=== PATIENT | male | born 1935 | race Caucasian/White ===

== ENCOUNTER 2018-05-08 05:50 | Day surgery (SDC) | payer MEDICARE ==
[2018-05-07 15:04] VITALS: BMI 26.1
[2018-05-08 07:26] LABS: INR-International Normal Ratio 1.2; PTT 29.1 SEC (22.9-36.1)
[2018-05-08] MEDS ORDERED: PROPOFOL 20 ML ONE (07:49)
--- NOTE | 2018-05-08 13:05 | EKG ---
Test Reason : PREOP Blood Pressure : / mmHG Vent. Rate : 043 BPM Atrial Rate : 033 BPM P-R Int : 000 ms QRS Dur : 108 ms QT Int : 482 ms P-R-T Axes : 000 -24 193 degrees QTc Int : 407 ms Atrial fibrillation with slow ventricular response Minimal voltage criteria for LVH, may be normal variant Inferior-posterior infarct , age undetermined Abnormal ECG No previous ECGs available Confirmed by SKIP HERRERA, DR. Savage ([id number]) on 05/08/2018 1:05:09 PM Referred By: CHRISTINA Confirmed By:DR. Janette VALDIVIA MD
--- NOTE | 2018-05-08 16:05 | ECHO ---
TRANSESOPHAGEAL ECHOCARDIOGRAM: DATE OF PROCEDURE: 05/08/18 INDICATION: 83-year-old gentleman with paroxysmal atrial fibrillation. DESCRIPTION OF PROCEDURE: The patient was taken to the PACU. The patient was sedated by anesthesiology. A transesophageal probe was placed in the distal esophagus and stomach. Echocardiographic images were obtained. The transesophageal probe was removed. FINDINGS: 1. Mild decrease in left ventricular systolic function. 2. Biatrial enlargement. 3. Mild mitral regurgitation. 4. Mild tricuspid regurgitation. 5. Watchman device was well positioned with the miniscule leak noted. 6. Small PFO. 7. Atherosclerotic debris in the descending aorta. IMPRESSION: Watchman device well positioned with a miniscule leak that is noted.
== END 2018-05-08 09:13 | disposition home or self-care (01) ==
LOC: CCL 05:50
PROVIDERS: ATTEND Internal Medicine Cardiovascular Disease
PROC: B24BZZ4 Ultrasonography of Heart with Aorta, Transesophageal (ICD-10-PCS; principal; 2018-05-08)
DX: I48.0 Paroxysmal atrial fibrillation (principal); I34.0 Nonrheumatic mitral (valve) insufficiency; I07.1 Rheumatic tricuspid insufficiency; Q21.1 Atrial septal defect; T82.538A Leakage of other cardiac and vascular devices and implants, initial encounter; Z79.01 Long term (current) use of anticoagulants; Z79.82 Long term (current) use of aspirin; Z79.899 Other long term (current) drug therapy
CPT/HCPCS: 85610; 85730; 93005; 93010; 93312; J2704

== ENCOUNTER 2018-08-29 00:04 | Inpatient (IN) | payer MEDICARE ==
[2018-08-29 01:16] LABS: #Eosinphils 0.2 thou/uL (0.0-0.7); #Lymphocytes 1.2 thou/uL (1.20-3.40); #Monocytes 0.4 thou/uL (0.11-0.59); #Neutrophils 2.7 thou/uL (1.40-6.50); %Basophils 0.5 % (0.0-1.0); %Eosinophils 4.4 % (0.0-10.0); %Lymphocytes 26.3 % (21.0-51.0); %Neutrophils 59.8 % (42.0-75.0); Mean Corpuscular HGB CONC 30.9 g/dL (32.0-36.0); Mean Corpuscular Hemoglobin 28.1 pg (27.0-31.0); Mean Platelet Volume 7.7 fL (7.4-10.4); Platelet Count 164 thou/uL (130-400); RBC Distribution Width 15.5 % (11.5-14.5); White Blood Cell (WBC) Count 4.5 thou/uL (4.8-10.8)
[2018-08-29 01:34] LABS: ALT (SGPT) 20 U/L (8-55); AST (SGOT) 30 U/L (5-34); Albumin 3.8 g/dL (3.4-4.8); Alkaline Phosphatase 69 U/L (40-150); Anion Gap 12 mmol/L (10-20); BUN (Urea Nitrogen) 26 mg/dL (8.4-25.7); Bilirubin, Total 0.6 mg/dL (0.2-1.2); Calc. Creatinine Clearance 0 mL/min (70-130); Calcium 9.6 mg/dL (7.8-10.44); Carbon Dioxide 26 mmol/L (23-31); Chloride 108 mmol/L (98-107); Estimated GFR-MDRD 61; Globulin 2.7 g/dL (2.4-3.5); Glucose 101 mg/dL (83-110); Lipase 29 U/L (8-78); Potassium 4.1 mmol/L (3.5-5.1); Protein, Total 6.5 g/dL (5.8-8.1); Sodium 142 mmol/L (136-145)
[2018-08-29] MEDS ORDERED: Acetaminophen 325 MG TAB PO PRN (02:34)
[2018-08-29 03:34] VITALS: BMI 26.0
[2018-08-29] MEDS ORDERED: Acetaminophen 325 MG TAB ONE (05:50)
[2018-08-29 06:18] LABS: Troponin I Less than 0.010 ng/mL (< 0.028)
[2018-08-29 07:07] LABS: Troponin I Less than 0.010 ng/mL (< 0.028)
[2018-08-29] MEDS ORDERED: HumaLOG 300 UNITS/3 ML VIAL SC PRN ×2 (08:23)
[2018-08-29] MEDS ORDERED: Dextrose 5% in Water 1,000 ML IV PRN (08:23)
[2018-08-29] MEDS ORDERED: Dextrose 50% Abboject 50 ML SYRINGE SLOW IVP PRN (08:23)
--- NOTE | 2018-08-29 08:35 | RAD ---
RADIOGRAPH CHEST 1 VIEW: HISTORY: 83-year-old male with atrial fibrillation and bradycardia. FINDINGS: There is cardiomegaly. There is no evidence of air space density, pulmonary edema, or pneumothorax. T he lateral costophrenic angles are sharp. IMPRESSION: 1. No acute pulmonary findings. 2. Cardiomegaly without congestive heart failure. harleen [] POS: KOFFI
[2018-08-29 09:00] LABS: Cardiac Risk 3.2 (Less than 4.5)
[2018-08-29] MEDS ORDERED: Non-Formulary Item 1 EACH (Omeprazole [Omeprazole] 1 CAP) PO SCH (09:00)
[2018-08-29] MEDS ORDERED: Atorvastatin Calcium 40 MG TAB PO SCH ×2 (09:00→14:45)
[2018-08-29] MEDS ORDERED: Donepezil HCl 10 MG TAB PO SCH ×2 (09:00→14:45)
[2018-08-29] MEDS ORDERED: FLUoxetine HCl 10 MG CAP PO SCH ×2 (09:00→14:45)
[2018-08-29] MEDS ORDERED: Famotidine 20 MG TAB PO SCH ×2 (09:00→14:45)
[2018-08-29] MEDS ORDERED: Aspirin 81 mg Enteric Coated Tablet PO SCH ×2 (09:00→14:45)
[2018-08-29] MEDS ORDERED: clonazePAM 0.5 MG TAB PO SCH ×2 (09:00→14:45)
[2018-08-29] MEDS ORDERED: Regadenoson 0.4 MG/5 ML SYRINGE ONE (11:00)
--- NOTE | 2018-08-29 13:14 | HP ---
DATE OF ADMISSION: 08/29/2018 PRIMARY CARE PHYSICIAN: Dr. Macedo. CHIEF COMPLAINT: "I had a pain in my chest and did not know what it was." HISTORY OF PRESENT ILLNESS: Mr. Pardo is a pleasant 83-year-old gentleman that has a history of diabet es mellitus as well as hypertension and coronary artery disease. He also has a history of chronic at rial fibrillation and has a Watchman device placed. He was in his usual state of health until about 6:30 in the evening. He says that he was watching TV when he began noticing a pain in the left side of his chest. He says he cannot really describe it other than it was just a pain. He felt like his heart was hurting. He says it was nonradiating. There were no associated symptoms such as shortness of breath or nausea or vomiting. He said it would come and go. He says he has had pain in his ches t due to scar tissue and had a workup, which was negative, but says that this pain seemed different t o him and for this reason, he came to the emergency room for evaluation. He was seen in an outside E R and then transferred to our facility for further evaluation. Currently, the pain is gone, but he s ays the medicines in the ER did not really help. He says it just came and went and is just less prom inent now. He denies any PND, no orthopnea. He has noted some increase in lower extremity edema rec ently. Otherwise, no other complaints. REVIEW OF SYSTEMS: All systems were reviewed and are negative except for that mentioned in the histo ry of present illness. PAST MEDICAL HISTORY: Significant for diabetes mellitus, hyperlipidemia, hypertension, coronary terrence ry disease, insomnia and atrial fibrillation. PAST SURGICAL HISTORY: He has had a hip replacement, a right total knee replacement, appendectomy, c holecystectomy and a left nephrectomy. ALLERGIES: No known drug allergies. SOCIAL HISTORY: He is and he has been for about 48 years. He is a former smoker. H e quit when he was 29 years old. He rarely drinks alcohol. His , Reena Zabala is his surrogate dec ision maker. The patient would like to have CPR, but does not want to be intubated. FAMILY HISTORY: Significant for heart disease in his mother. Father young and he does not know his father's history. HOME MEDICATIONS: Include aspirin 81 mg daily, Lipitor 80 mg daily, baclofen 10 mg t.i.d., carvedilo l 3.125 mg twice daily, clonazepam 0.5 mg daily, donepezil 10 mg daily, fluoxetine 10 mg daily, Myrbe triq 50 mg at bedtime, omeprazole 20 mg daily and ramipril 5 mg at bedtime. PHYSICAL EXAMINATION: GENERAL: He is alert and oriented. He appears to be in no acute distress. He is well developed and well nourished. VITAL SIGNS: Blood pressure was 120/68, heart rate 51, respiratory rate of 16, temperature is 97.9. HEENT: His pupils are equal, round and reactive. Extraocular muscles are intact. His sclerae are a nicteric. Throat, there was no erythema, no exudates. NECK: No adenopathy. No bruits. LUNGS: Clear to auscultation. There is no wheezing, no rales, no rhonchi. CARDIOVASCULAR: He has a normal S1 and S2. I did not appreciate an S3 or an S4. No murmurs, no cli cks, no rubs. ABDOMEN: Soft, nontender, nondistended. Positive for bowel sounds. There is no rebound, no guardin g. MUSCULOSKELETAL: There is no muscle tenderness. No crepitus in the joints. No effusions. NEUROLOGIC: Cranial nerves II-XII are intact. Muscle strength is 5/5 in both his upper and lower ex tremities. SKIN AND INTEGUMENT: There are no skin changes. No rash. LABORATORY AND X-RAY FINDINGS: On his EKG, it is atrial fibrillation, the rates ranging from 50 to t he 60s, nonspecific ST wave changes. This is by my reading. CBC, the white blood cell count is 4.5, hemoglobin 11, hematocrit is 35.5 and platelet count is 164,000. Sodium is 142, potassium 4.1, chlo ride is 108, CO2 is 26, BUN of 26, creatinine 1.14, glucose is 101. Troponin is less than 0.010. He had a chest x-ray, he has cardiomegaly. Sternal wires are in place. There is some mild airspace di sease, but the costophrenic angles are sharp. There is no evidence of effusion. ASSESSMENT AND PLAN: 1. This is a pleasant 83-year-old gentleman who presents to the emergency room with complaints of ch est pain in the setting of slow atrial fibrillation. He will be placed in observation. He has alrea dy had a full set of cardiac enzymes. We will get a nuclear stress test to help assess his risk for acute coronary syndrome. Check a lipid panel, consider echocardiogram and consult Dr. Muller for [facility] recommendations. 2. For diabetes mellitus, we will continue his usual home medications as well as the sliding scale i nsulin. 3. Hypertension. Continue his home medications as well as p.r.n. medications for blood pressure. F mayrather recommendations are to follow.
--- NOTE | 2018-08-29 14:20 | NM ---
CARDIAC SPECT: CLINICAL HISTORY: 83-year-old male with chest pain, bradycardia, coronary artery disease, CABG, atrial fibrillation, hy pertension, diabetes, and dyslipidemia. TECHNIQUE: A myocardial perfusion scan was performed using the single isotope one day protocol with technetium-9 9m sestamibi. 9 mCi were injected intravenously for the rest exam followed by 30 mCi for the stress e xam. Pharmacologic stress with Lexiscan was monitored and interpreted by Dr. Muller. FINDINGS: A fixed defect is seen in the inferior wall. No reversible defects are identified. GATED SPECT LVEF: 49%. WALL MOTION EXAM: Mild inferior wall hypokinesis. IMPRESSION: No evidence of reversible ischemia. POS: KOFFI
[2018-08-29] MEDS: Baclofen 10 MG TAB PO SCH ×4 (15:15→20:38)
[2018-08-29] MEDS: Enoxaparin Sodium 40 MG/0.4 ML SYRINGE SC SCH (15:19)
--- NOTE | 2018-08-29 18:29 | CON ---
DATE OF CONSULTATION: 08/29/2018 INDICATION FOR CONSULTATION: An 83-year-old gentleman with history of paroxysmal atrial fibrillation , history of coronary artery disease, bypass surgery who complains of chest discomfort. He has been seen in the past apparently for chest discomfort which was thought to be due to scar tissue. He desc ribes this as being a dull left upper chest discomfort. He presented to the emergency room yesterday and was then transferred here. His EKG does not show any significant changes to indicate ischemia. He does have chronic atrial fibrillation, but no ST segment changes were noted. Also, the laborator y data did not show any indication that the patient had suffered a myocardial infarction. Cardiac en zymes are all negative. His last stress test was approximately 2 years ago. He last saw Dr. Claribel kinsey in the office about 6 months ago. He has had an echocardiogram which showed a mild decrease in lef t ventricular systolic function with dilated left atrium and right atrium. He has had a Watchman imp lant in the past. He has a small patent foramen ovale. He did have a transesophageal echocardiogram by Dr. Ybarra also within the last year which showed a Watchman to be in place without any leakage . He has mild mitral and tricuspid valve regurgitation. PAST MEDICAL HISTORY: Significant for bypass surgery, history of myocardial infarction, bilateral ca taract surgery. He has had restless leg syndrome. He has history of atrial fibrillation. He has land d left nephrectomy due to renal cell carcinoma. He has had left hip replacement. He has had total k nee replacement, carpal tunnel syndrome repair, cholecystectomy, appendectomy. SOCIAL HISTORY: He has no alcohol or tobacco abuse at this time. FAMILY HISTORY: Noncontributory. ALLERGIES: None. MEDICATIONS: Include aspirin, Coreg, Lipitor and ramipril. REVIEW OF SYSTEMS: Twelve point review of systems unremarkable except noted in the history of presen t illness, however, the patient does have memory loss. PHYSICAL EXAMINATION: GENERAL: Reveals an elderly gentleman in no acute distress. VITAL SIGNS: Blood pressure 104/68, heart rate 78 and irregular, respiratory rate is 16. Heart rate earlier was about 50 beats per minute. HEENT: Shows the head to be normocephalic and atraumatic. Carotid pulses are present. There were n o bruits. CHEST: Clear to auscultation. No rales, rhonchi, or wheezing. CARDIOVASCULAR: Exam reveals an irregularly regular rhythm. Denies any significant murmurs, heaves, thrills, bruits, or rubs. ABDOMEN: Soft and nontender with positive bowel sounds. No organomegaly or masses noted. Femoral p ulses are present. EXTREMITIES: Showed no clubbing, cyanosis, or edema. Pedal pulses are present. NEUROLOGIC: The patient other than having some memory loss appears to be relatively intact. DIAGNOSTIC DATA: EKG shows atrial fibrillation with no acute changes. The heart rate fluctuates in between 50s to 70s beats per minute. IMPRESSION: 1. Elderly gentleman with chest pain which he has had in the past which may just be due to scar tiss ue or anxiety. He has had no EKG changes and cardiac enzymes are negative and we will await the resu lts of stress testing to rule out any evidence for underlying ischemia if any is found, he may need t o undergo a cardiac catheterization. Otherwise, we may need to seek for other sources of his discomf ort and may need to start some type of pain medication or pain control. 2. History of bypass surgery. This does appear to be stable. We will await the results of the stre ss test. 3. History of hypercholesterolemia. We will continue his Lipitor. 4. History of hypertension. We will continue his Coreg and ramipril. If there are any other change , we will be more than happy to address these at that time. We will await the results of the studies . His echocardiogram shows ejection fraction to be only mildly decreased and we will need to compare with his previous echos in the past. 5. Chronic atrial fibrillation. He has undergone a Watchman device and will have a decreased risk o f having an embolic phenomenon.
[2018-08-29] MEDS: Famotidine 20 MG TAB PO SCH (20:40)
[2018-08-29] MEDS ORDERED: Melatonin 3 MG TAB PO PRN (21:27)
[2018-08-29] MEDS: Ramipril 5 MG CAP PO SCH (21:51)
[2018-08-30 05:09] LABS: #Eosinphils 0.1 thou/uL (0.0-0.7); #Monocytes 0.5 thou/uL (0.11-0.59); #Neutrophils 2.5 thou/uL (1.40-6.50); %Basophils 0.4 % (0.0-1.0); %Eosinophils 3.1 % (0.0-10.0); %Lymphocytes 23.6 % (21.0-51.0); %Monocytes 11.5 % (0.0-10.0); %Neutrophils 61.4 % (42.0-75.0); Hemoglobin 10.4 g/dL (14.0-18.0); Mean Corpuscular HGB CONC 32.1 g/dL (32.0-36.0); Mean Corpuscular Hemoglobin 28.7 pg (27.0-31.0); Mean Corpuscular Volume 89.3 fL (78.0-98.0); Mean Platelet Volume 8.1 fL (7.4-10.4); Platelet Count 144 thou/uL (130-400); RBC Distribution Width 15.3 % (11.5-14.5); Red Blood Cell (RBC) Count 3.64 mill/uL (4.70-6.10); White Blood Cell (WBC) Count 4.1 thou/uL (4.8-10.8)
[2018-08-30 05:20] LABS: Anion Gap 12 mmol/L (10-20); BUN (Urea Nitrogen) 23 mg/dL (8.4-25.7); Calc. Creatinine Clearance 57 mL/min (70-130); Calcium 8.9 mg/dL (7.8-10.44); Carbon Dioxide 24 mmol/L (23-31); Chloride 109 mmol/L (98-107); Estimated GFR-MDRD 68; Glucose 115 mg/dL (83-110); Potassium 4.1 mmol/L (3.5-5.1); Sodium 141 mmol/L (136-145)
[2018-08-30] MEDS: Enoxaparin Sodium 40 MG/0.4 ML SYRINGE SC SCH (08:09)
[2018-08-30] MEDS: Baclofen 10 MG TAB PO SCH ×3 (08:09→22:14)
[2018-08-30] MEDS: clonazePAM 0.5 MG TAB PO SCH (08:10)
[2018-08-30] MEDS: Atorvastatin Calcium 40 MG TAB PO SCH (08:10)
[2018-08-30] MEDS: Aspirin 81 mg Enteric Coated Tablet PO SCH (08:10)
[2018-08-30] MEDS: FLUoxetine HCl 10 MG CAP PO SCH (08:11)
[2018-08-30] MEDS: Donepezil HCl 10 MG TAB PO SCH (08:11)
[2018-08-30] MEDS: Famotidine 20 MG TAB PO SCH ×2 (08:12→22:15)
--- NOTE | 2018-08-30 15:08 | PDOC.PN ---
- Subjective Encounter Start Date: 08/30/18 Encounter Start Time: 13:00 Mr. Pardo was seen today in follow-up of chest pain and bradycardia. He does not have any complaints this afternoon - Objective Resuscitation Status: Resuscitation Status DNI:No Intubation MAR Reviewed: Yes Vital Signs & Weight: Vital Signs (12 hours) Temp Pulse Resp BP BP Pulse Ox 08/30/18 11:50 97.5 F L 48 L 16 124/64 97 08/30/18 07:58 98.5 F 56 L 18 101/56 L 94 L 08/30/18 05:00 97.0 F L 50 L 18 134/59 L 96 Weight Weight 163 lb 14.4 oz I&O: 08/29/18 08/30/18 08/31/18 06:59 06:59 06:59 Intake Total 50 1200 Output Total 500 Balance 50 1200 -500 Result Diagrams: 08/30/18 04:44 08/30/18 04:44 Additional Labs: Accuchecks 08/30/18 08/29/18 08/29/18 10:44 20:08 16:35 POC Glucose 90 121 H 93 Phys Exam - Physical Examination HEENT: PERRLA Respiratory: no wheezing, no rales, no rhonchi, clear to auscultation bilateral Cardiovascular: no significant murmur, no rub, irregular Heart rate is slow Gastrointestinal: soft, non-tender, no distention, positive bowel sounds Musculoskeletal: no edema, pulses present Dx/Plan (1) Chest pain Code(s): R07.9 - CHEST PAIN, UNSPECIFIED Status: Acute (2) Bradycardia Code(s): R00.1 - BRADYCARDIA, UNSPECIFIED Status: Acute (3) Atrial fibrillation Code(s): I48.91 - UNSPECIFIED ATRIAL FIBRILLATION Status: Chronic (4) Coronary artery disease Code(s): I25.10 - ATHSCL HEART DISEASE OF [place] CORONARY ARTERY W/O ANG PCTRS Status: Chronic (5) Hypertension Code(s): I10 - ESSENTIAL (PRIMARY) HYPERTENSION Status: Chronic - Plan * Chest pain- ? etiology- his stress test was negative- this may be related to bradycardia, vs. other non-cardiac cause * Bradycardia- ( slow AFIB) his heart rate has dipped down into the 30's, and he had a significant pause noted on his rhythm strip. Dr. Muller is aware, and she plans to place a pace-maker tomorrow. * HTN- Blood pressure is stable * DM- blood glucose is stable * Will change is status to inpatient, given the significant Bradycardia, off Carvediolol.
[2018-08-30] MEDS: Ramipril 5 MG CAP PO SCH (22:16)
[2018-08-31] MEDS ORDERED: Fentanyl 100 MCG/2 ML VIAL ONE (06:44)
[2018-08-31] MEDS ORDERED: Midazolam HCl 2 mg/2 ml Vial ONE (06:44)
[2018-08-31] MEDS ORDERED: CEFAZOLIN 1 GM VIAL ONE ×2 (06:45→06:48)
[2018-08-31] MEDS ORDERED: Gentamicin 80 MG/2 ML VIAL ONE (06:48)
[2018-08-31] MEDS ORDERED: Lidocaine 1% (PF) 30 ML VIAL ONE (07:35)
[2018-08-31] MEDS ORDERED: Ondansetron PF 4 MG/2 ML Vial ONE (07:35)
--- NOTE | 2018-08-31 08:12 | PDOC.CTH ---
Cardiology Progress Note - Subjective Pt. seen and eval. by me. No new overnight events. He is still bradycardic. He has some N/V this AM. He is ready for pacemaker insertion this AM. - Objective Vital Signs Temp Pulse Resp BP BP Pulse Ox 08/31/18 04:00 98.2 F 61 16 131/70 95 08/31/18 00:00 98.8 F 65 16 117/57 L 95 08/30/18 22:16 120/62 Weight 163 lb 14.4 oz 08/30/18 08/31/18 09/01/18 06:59 06:59 06:59 Intake Total 1200 Output Total 500 Balance 1200 -500 - Physical Examination General/Neuro: alert & oriented x3 Neck: no JVD present Lungs: CTA Heart: other: (irreg/irreg) Abdomen: NT/ND, soft - Labs Result Diagrams: 08/30/18 04:44 08/30/18 04:44 Troponin/CKMB Troponin I Less than 0.010 ng/mL (< 0.028) 08/29/18 06:38 - Assessment/Plan 1. Bradycardia. SSS. symptomatic. Plan for pacemaker insertion this AM. 2. Chronic Afib. s/p Watchman device. He has been on Eliquis. We will resume this after the pacemaker insertion. 3. CAD. s/p Cabg > 20 years ago. Stable. Stress test this admission_ no ischemia. 4. DM- per 1 service. 5. HTN. Stable. If he remains stable ,could d/c this afternoon and f/u with me in 1-2 weeks in the office for a wound check.
[2018-08-31] MEDS ORDERED: Apixaban 5 MG TAB PO SCH ×2 (08:15→20:00)
--- NOTE | 2018-08-31 08:29 | CCL ---
PACEMAKER PLACEMENT: DATE OF ADMISSION: 08/29/2018. DATE OF PROCEDURE: 08/31/2015. INDICATION FOR PROCEDURE: An 83-year-old patient with a history of symptomatic bradycardia with sick sinus syndrome with a hist ory of chronic atrial fibrillation with heart rates in the 30s. He was advised to undergo pacemaker insertion. PROCEDURE: He was taken to cardiac mill laborer where he underwent the procedure today without difficulties or compl ications. He was implanted with a single-chamber pacemaker with 1 single screw-in lead in the right ventricle. Pacemaker was set with the upper rate of 120 and the lower rate was set at 60. He was im planted with an MRI compatible device from [employer]. There were no difficulties or comp lications. POS: KOFFI
[2018-08-31] MEDS ORDERED: Carvedilol 3.125 MG TAB PO SCH (09:00)
[2018-08-31] MEDS: Baclofen 10 MG TAB PO SCH ×3 (10:13→21:46)
[2018-08-31] MEDS: Carvedilol 3.125 MG TAB PO SCH ×2 (10:13→18:03)
[2018-08-31] MEDS: Donepezil HCl 10 MG TAB PO SCH (10:13)
[2018-08-31] MEDS: Aspirin 81 mg Enteric Coated Tablet PO SCH (10:14)
[2018-08-31] MEDS: Atorvastatin Calcium 40 MG TAB PO SCH (10:14)
[2018-08-31] MEDS: FLUoxetine HCl 10 MG CAP PO SCH (10:14)
[2018-08-31] MEDS: Famotidine 20 MG TAB PO SCH ×2 (10:15→21:47)
[2018-08-31] MEDS: clonazePAM 0.5 MG TAB PO SCH (10:15)
--- NOTE | 2018-08-31 11:45 | RAD ---
CHEST 1 VIEW: COMPARISON: 08/29/2018. HISTORY: Pain. Status post cardiac catheter placement. FINDINGS: There are sternotomy wires. Heart is enlarged. The pulmonary vessels and hilum are normal. Costoph renic angles are clear. Chronic changes throughout the lung parenchyma. No consolidation or mass. Interval placement of a left-sided transvenous pacemaker with lead position in the expected region of the right ventricle. No pneumothorax. IMPRESSION: Interval placement of a single-lead left-sided transvenous pacemaker. No pneumothorax. POS: KOFFI
--- NOTE | 2018-08-31 13:41 | PDOC.PN ---
- Subjective Encounter Start Date: 08/31/18 Encounter Start Time: 13:39 Mr. Pardo was seen today in followup of symptomatic Bradycardia. He is post pace- maker placement. He does not have any complaints. He admits that his left shoulder is a bit sore. - Objective Resuscitation Status: Resuscitation Status DNI:No Intubation MAR Reviewed: Yes Vital Signs & Weight: Vital Signs (12 hours) Temp Pulse Resp BP BP Pulse Ox 08/31/18 11:55 98.1 F 67 20 140/81 97 08/31/18 10:08 98 08/31/18 04:00 98.2 F 61 16 131/70 95 Weight Weight 163 lb 14.4 oz I&O: 08/30/18 08/31/18 09/01/18 06:59 06:59 06:59 Intake Total 1200 Output Total 500 250 Balance 1200 -500 -250 Result Diagrams: 08/30/18 04:44 08/30/18 04:44 Additional Labs: Accuchecks 08/31/18 08/31/18 08/30/18 11:12 05:44 20:43 POC Glucose 100 109 93 08/30/18 16:43 POC Glucose 110 Phys Exam - Physical Examination HEENT: PERRLA Respiratory: no wheezing, no rales, no rhonchi, clear to auscultation bilateral Cardiovascular: RRR, no significant murmur, no rub Gastrointestinal: soft, non-tender, no distention, positive bowel sounds Musculoskeletal: no edema Dx/Plan (1) Bradycardia Code(s): R00.1 - BRADYCARDIA, UNSPECIFIED Status: Acute (2) Atrial fibrillation Code(s): I48.91 - UNSPECIFIED ATRIAL FIBRILLATION Status: Chronic (3) Coronary artery disease Code(s): I25.10 - ATHSCL HEART DISEASE OF [place] CORONARY ARTERY W/O ANG PCTRS Status: Chronic (4) Hypertension Code(s): I10 - ESSENTIAL (PRIMARY) HYPERTENSION Status: Chronic (5) Chest pain Code(s): R07.9 - CHEST PAIN, UNSPECIFIED Status: Resolved - Plan * Symptomatic Bradycardia- he is post pace-maker placement * He live at home with his , but she is elderly as well,and just recently had ankle surgery. Her leg is in a boot. His daughter is at the bedside, and says she says she works and can not be there to help during the day. He has falled in the past, requiring a hip replacement. Will get a PT/OT evaluation, as he may need a short stay in [facility] prior to going home.. * HTN- blood pressure is stable * CAD- stable
[2018-08-31] MEDS: Ondansetron ODT 4 MG TAB PO PRN (17:09)
[2018-08-31] MEDS: Apixaban 5 MG TAB PO SCH (21:46)
[2018-08-31] MEDS: Ramipril 5 MG CAP PO SCH (21:47)
[2018-08-31] MEDS: Acetaminophen 325 MG TAB PO PRN (21:48)
[2018-09-01] MEDS: clonazePAM 0.5 MG TAB PO SCH (09:19)
[2018-09-01] MEDS: Atorvastatin Calcium 40 MG TAB PO SCH (09:20)
[2018-09-01] MEDS: FLUoxetine HCl 10 MG CAP PO SCH (09:20)
[2018-09-01] MEDS: Aspirin 81 mg Enteric Coated Tablet PO SCH (09:20)
[2018-09-01] MEDS: Donepezil HCl 10 MG TAB PO SCH (09:20)
[2018-09-01] MEDS: Baclofen 10 MG TAB PO SCH ×2 (09:21→15:07)
[2018-09-01] MEDS: Acetaminophen 325 MG TAB PO PRN (09:23)
[2018-09-01] MEDS: Carvedilol 3.125 MG TAB PO SCH (09:26)
[2018-09-01] MEDS: Famotidine 20 MG TAB PO SCH (09:26)
[2018-09-01] MEDS: Apixaban 5 MG TAB PO SCH (09:26)
--- NOTE | 2018-09-01 09:45 | PDOC.CTH ---
<Rasheeda Dover - Last Filed: 09/01/18 09:41> Cardiology Progress Note - Objective Vital Signs Temp Pulse Resp BP BP Pulse Ox 09/01/18 07:42 98.3 F 60 16 108/77 93 L 09/01/18 04:00 98.3 F 60 18 120/71 92 L 09/01/18 00:00 98.7 F 60 18 126/74 92 L 08/31/18 21:47 130/61 Weight 163 lb 14.4 oz 08/31/18 09/01/18 09/02/18 06:59 06:59 06:59 Intake Total 360 240 Output Total 500 650 Balance -500 -290 240 - Labs Result Diagrams: 08/30/18 04:44 08/30/18 04:44 Troponin/CKMB Troponin I Less than 0.010 ng/mL (< 0.028) 08/29/18 06:38 - Assessment/Plan 1. Bradycardia 2/2 SSS and S/p PM placement on 08/31/18 - the site is ALFRED, dry, erythema around the PM insertion site. 2. Chronic Afib with s/p Watchman device - He has been on Eliquis. We will resume this after the pacemaker insertion. 3. CAD. s/p Cabg > 20 years ago. Stable. Stress test this admission_ no ischemia. 4. DM- per 1 service. 5. HTN. Stable. If he remains stable ,could d/c this afternoon and f/u with me in 1-2 weeks in the office for a wound check. <Milka Muller - Last Filed: 09/01/18 11:15> Cardiology Progress Note - Objective Vital Signs Temp Pulse Pulse Pulse Resp BP BP 09/01/18 09:55 64 61 114/76 118/70 09/01/18 09:24 09/01/18 07:42 98.3 F 60 16 09/01/18 04:00 98.3 F 60 18 09/01/18 00:00 98.7 F 60 18 BP Pulse Ox 09/01/18 09:55 09/01/18 09:24 93 L 09/01/18 07:42 108/77 93 L 09/01/18 04:00 120/71 92 L 09/01/18 00:00 126/74 92 L Weight 163 lb 14.4 oz 08/31/18 09/01/18 09/02/18 06:59 06:59 06:59 Intake Total 360 240 Output Total 500 650 Balance -500 -290 240 - Labs Result Diagrams: 08/30/18 04:44 08/30/18 04:44 Troponin/CKMB Troponin I Less than 0.010 ng/mL (< 0.028) 08/29/18 06:38 - Assessment/Plan Pt. seen and eval. by me. I agree with the A/P by the AFFILIATE MARKETING SPECIALIST. Chest clear. RRR. Pacing. OKay to discharge the pt. to home..
[2018-09-01 12:04] VITALS: TEMP 98.1
--- NOTE | 2018-09-01 12:53 | PDOC.PN ---
- Subjective Encounter Start Date: 09/01/18 Encounter Start Time: 12:52 Mr. Pardo was seen today in follow-up of Symptomatic bradycardia. He does not have any complaints. - Objective Resuscitation Status: Resuscitation Status DNI:No Intubation MAR Reviewed: Yes Vital Signs & Weight: Vital Signs (12 hours) Temp Pulse Pulse Pulse Resp BP BP 09/01/18 12:00 98.1 F 100 16 09/01/18 09:55 64 61 114/76 118/70 09/01/18 09:24 09/01/18 07:42 98.3 F 60 16 09/01/18 04:00 98.3 F 60 18 BP Pulse Ox 09/01/18 12:00 108/76 95 09/01/18 09:55 09/01/18 09:24 93 L 09/01/18 07:42 108/77 93 L 09/01/18 04:00 120/71 92 L Weight Weight 163 lb 14.4 oz I&O: 08/31/18 09/01/18 09/02/18 06:59 06:59 06:59 Intake Total 360 240 Output Total 500 650 Balance -500 -290 240 Result Diagrams: 08/30/18 04:44 08/30/18 04:44 Additional Labs: Accuchecks 09/01/18 08/31/18 06:00 20:21 POC Glucose 125 H 123 H Phys Exam - Physical Examination HEENT: PERRLA Respiratory: no wheezing, no rales, no rhonchi, clear to auscultation bilateral Cardiovascular: RRR, no significant murmur, no rub Gastrointestinal: soft, non-tender, no distention, positive bowel sounds Musculoskeletal: no edema Dx/Plan (1) Bradycardia Code(s): R00.1 - BRADYCARDIA, UNSPECIFIED Status: Acute (2) Atrial fibrillation Code(s): I48.91 - UNSPECIFIED ATRIAL FIBRILLATION Status: Chronic (3) Coronary artery disease Code(s): I25.10 - ATHSCL HEART DISEASE OF [place] CORONARY ARTERY W/O ANG PCTRS Status: Chronic (4) Hypertension Code(s): I10 - ESSENTIAL (PRIMARY) HYPERTENSION Status: Chronic (5) Chest pain Code(s): R07.9 - CHEST PAIN, UNSPECIFIED Status: Resolved - Plan * Mr. Pardo is s/p pace-maker placement, and has been stable * He has been accepted to the snf facility.
[2018-09-01] MEDS: Ondansetron ODT 4 MG TAB PO PRN (13:12)
[2018-09-01 13:23] VITALS: BP 107/79
== END 2018-09-01 16:20 | DRG 243 ==
LOC: ERS 00:04 → 2SE 02:19 → OBSVTOIN 08-30 15:12
PROVIDERS: ADMIT Internal Medicine; ATTEND Internal Medicine
PROC: 0JH604Z Insertion of Pacemaker, Single Chamber into Chest Subcutaneous Tissue and Fascia, Open Approach (ICD-10-PCS; principal; 2018-08-31)
PROC: 02HK3JZ Insertion of Pacemaker Lead into Right Ventricle, Percutaneous Approach (ICD-10-PCS; 2018-08-31)
DX: I49.5 Sick sinus syndrome (principal); I25.110 Atherosclerotic heart disease of native coronary artery with unstable angina pectoris; I48.2 Chronic atrial fibrillation; I25.10 Atherosclerotic heart disease of native coronary artery without angina pectoris; I10 Essential (primary) hypertension; E11.9 Type 2 diabetes mellitus without complications; I49.9 Cardiac arrhythmia, unspecified; Z95.1 Presence of aortocoronary bypass graft; G25.81 Restless legs syndrome; G47.00 Insomnia, unspecified; N32.81 Overactive bladder; I25.2 Old myocardial infarction; I48.0 Paroxysmal atrial fibrillation; I08.1 Rheumatic disorders of both mitral and tricuspid valves; Z90.5 Acquired absence of kidney; Z85.528 Personal history of other malignant neoplasm of kidney; Z96.642 Presence of left artificial hip joint; Z96.653 Presence of artificial knee joint, bilateral; Z79.01 Long term (current) use of anticoagulants
CPT/HCPCS: 33207; 36415; 36416; 71045; 78452; 80048; 80053; 80061; 83690; 84484; 85025; 93005; 93017; 93798; A9500; C1785; C1898; G8978-GP-CL; G8979-GP-CJ; G8987-GO-CK; G8988-GO-CI; J0690; J1580; J1650; J2001; J2250; J2405; J2785; J3010; Q0162

== ENCOUNTER 2019-03-18 07:45 | Day surgery (SDC) | payer MEDICARE ==
[2019-03-17 13:24] VITALS: BMI 26.5
[2019-03-18 08:57] LABS: INR-International Normal Ratio 1.1; PTT 27.2 SEC (22.9-36.1); Prothrombin Time 14.8 SEC (12.0-14.7)
[2019-03-18] MEDS ORDERED: Sodium Chloride 0.9% 10 ML ONE (10:40)
[2019-03-18] MEDS ORDERED: Thrombin 5000 UNITS/5 ML VIAL ONE (10:40)
[2019-03-18] MEDS ORDERED: Fentanyl 100 MCG/2 ML VIAL ONE ×2 (12:38→15:20)
[2019-03-18] MEDS ORDERED: Ondansetron HCl/PF 4 MG/2 ML Vial IVP PRN (15:11)
[2019-03-18] MEDS ORDERED: traMADol HCl 50 MG TAB PO PRN (15:19)
[2019-03-18] MEDS ORDERED: Acetaminophen/Codeine 30-300mg Tablet PO PRN (15:19)
[2019-03-18] MEDS ORDERED: Promethazine HCl 25 MG/ML VIAL IM/IV PRN (15:19)
[2019-03-18] MEDS ORDERED: Acetaminophen 325 MG TAB PO PRN (15:19)
[2019-03-18] MEDS ORDERED: Mag-Al 1200 mg/1200 mg/30 ML UDCUP PO PRN (15:19)
[2019-03-18] MEDS ORDERED: HYDROcodone/Acetaminophen 7.5/325 mg Tablet PO PRN (15:19)
[2019-03-18] MEDS ORDERED: Morphine 4 MG/ML VIAL SLOW IVP PRN (15:19)
[2019-03-18] MEDS ORDERED: Milk Of Magnesia 30 ML UDCUP PO PRN (15:19)
[2019-03-18] MEDS ORDERED: Fleet Enema 133 ML BOT PR PRN (15:19)
[2019-03-18] MEDS ORDERED: Bisacodyl 10 MG SUPP PR PRN (15:19)
[2019-03-18] MEDS: Sodium Chloride 0.9% 1,000 ML IV SCH ×2 (16:37→21:03)
[2019-03-18] MEDS ORDERED: CEFAZOLIN 2 GM in Premix Bag 1 BAG IVPB SCH (17:00)
--- NOTE | 2019-03-18 20:04 | EKG ---
Test Reason : PREOP Blood Pressure : / mmHG Vent. Rate : 061 BPM Atrial Rate : 062 BPM P-R Int : 000 ms QRS Dur : 228 ms QT Int : 542 ms P-R-T Axes : 000 -57 119 degrees QTc Int : 545 ms Ventricular-paced rhythm Abnormal ECG When compared with ECG of 29-AUG-2018 00:57, (Unconfirmed) Electronic ventricular pacemaker has replaced Atrial fibrillation Confirmed by SKIP HERRERA, SSteph (4) on 03/18/2019 8:04:22 PM Referred By: LYNN Confirmed By:DR. Janette VALDIVIA MD
[2019-03-18] MEDS: Carvedilol 3.125 MG TAB PO SCH (20:55)
[2019-03-18] MEDS: tiZANidine HCl 4 MG TAB PO PRN (20:55)
[2019-03-18] MEDS: CEFAZOLIN 2 GM in Premix Bag 1 BAG IVPB SCH (20:56)
[2019-03-18] MEDS ORDERED: Ramipril 5 MG CAP PO SCH (21:00)
[2019-03-19] MEDS: CEFAZOLIN 2 GM in Premix Bag 1 BAG IVPB SCH (06:27)
[2019-03-19] MEDS: tiZANidine HCl 4 MG TAB PO PRN (06:30)
[2019-03-19] MEDS ORDERED: clonazePAM 0.5 MG TAB PO SCH (09:00)
[2019-03-19] MEDS ORDERED: FLUoxetine HCl 10 MG CAP PO SCH (09:00)
[2019-03-19] MEDS ORDERED: Donepezil HCl 10 MG TAB PO SCH (09:00)
[2019-03-19] MEDS ORDERED: Atorvastatin Calcium 40 MG TAB PO SCH (09:00)
[2019-03-19] MEDS: Carvedilol 3.125 MG TAB PO SCH (09:35)
--- NOTE | 2019-03-19 11:33 | OP ---
DATE OF PROCEDURE: 03/18/2019 LOCATION: OR 12. COMPOSITION TEACHER: Yanick Vance PA-C PRE PROCEDURE DIAGNOSIS: Lumbar stenosis with low back and leg pain. POSTPROCEDURE DIAGNOSIS: Lumbar stenosis with low back and leg pain. PROCEDURES PERFORMED: L3-L4 and L4-L5 laminectomies, partial facetectomies, foraminotomies. DESCRIPTION OF PROCEDURE: After informed consent was obtained from the patient, the patient was brought to the OR. Proper patient, pause, and identification were carried out. He was placed under excellent general endotracheal anesthesia and positioned prone on the OR table. All appropriate points were padded. We identified the L3, L4, and L5 dorsal spines and lamina. A linear stella was made over this region. This area was sterilely cleansed, prepared, and draped. Proper patient, pause, and identification were carried out. The wound was then opened in a combination of sharp, monopolar, and blunt dissection, and the L3, L4, L5 dorsal spines and lamina were exposed. Localization film confirmed our area of interest. We then performed L3, L4, and L5 laminectomies, partial facetectomies, and foraminotomies over the L3, L4, and L5 nerve roots. Copious irrigation occurred throughout as did maximizing hemostasis. There was no spinal fluid leak. The wound was copiously irrigated and closed in anatomic layers. The patient was then emerged from anesthesia. Job ID: [id number]
[2019-03-19 11:45] VITALS: BP 99/58; TEMP 98.1
[2019-03-19] MEDS: Sodium Chloride 0.9% 1,000 ML IV SCH (11:48)
--- NOTE | 2019-03-19 23:54 | DIS ---
DATE OF ADMISSION: 03/18/2019 DATE OF DISCHARGE: 03/19/2019 DISCHARGE DIAGNOSES: 1. Lumbar spinal stenosis with neurogenic claudication. 2. Lumbar radiculopathy. PLAN: Mr. Pandya was admitted to undergo multilevel lumbar laminectomies with Dr. Fraser. His surgery was without complication and required one overnight stay in order for adequate pain control. At the time of discharge, the patient was very pleased with his outcome postoperatively as he had complete resolution of his bilateral lower extremity pain. He had some incisional back pain but otherwise had met criteria for discharge. At the time of discharge, neurologically, he had good strength in the bilateral lower extremities and had improved stability in his gait. Appropriate patient education and outpatient followups were provided to the patient and his family and at the time of discharge, the patient was pleased with his outcome postoperatively with the understanding to call the office with questions or concerns prior to his next followup. Job ID: [id number]
== END 2019-03-19 12:23 | disposition home or self-care (01) ==
LOC: SDC 07:45 → SURG B 15:26 → UNDOADMOB 15:26 → UNDODISOB 03-19 12:23 → SDC 03-19 12:23
PROVIDERS: ATTEND Surgery
PROC: 01NB0ZZ Release Lumbar Nerve, Open Approach (ICD-10-PCS; principal; 2019-03-18)
DX: M48.062 Spinal stenosis, lumbar region with neurogenic claudication (principal); M54.16 Radiculopathy, lumbar region; Z79.82 Long term (current) use of aspirin; Z79.899 Other long term (current) drug therapy; Z95.1 Presence of aortocoronary bypass graft; Z98.890 Other specified postprocedural states
CPT/HCPCS: 76000; 85610; 85730; 93005; 93010; J0131; J0690; J2550; J3010; J3370; J3490

== ENCOUNTER 2019-08-24 10:20 | Inpatient (IN) | payer MEDICARE ==
[~2019-08-24 10:20] MED LIST: Dexamethasone 20 MG/5 ML VIAL ONE; Esmolol 100 MG/10 ML VIAL ONE; Glycopyrrolate 0.2 MG/ML 5 ML SYRINGE ONE; Lidocaine 1% PF 5 ML VIAL ONE; Ondansetron PF 4 MG/2 ML Vial ONE; PHENYLEPHRINE-NS 100 MCG/ML 10 ML SYRINGE ONE; PROPOFOL 200 MG/20 ML VIAL ONE; Rocuronium Bromide 10 MG/ML (10ML VIAL) ONE
[2019-08-24 11:21] LABS: #Eosinphils 0.1 thou/uL (0.0-0.7); #Lymphocytes 1.1 thou/uL (1.20-3.40); #Monocytes 0.6 thou/uL (0.11-0.59); #Neutrophils 5.4 thou/uL (1.40-6.50); %Eosinophils 1.2 % (0.0-10.0); %Lymphocytes 15.5 % (21.0-51.0); %Monocytes 8.2 % (0.0-10.0); %Neutrophils 75.1 % (42.0-75.0); Hemoglobin 12.7 g/dL (14.0-18.0); Mean Corpuscular HGB CONC 32.8 g/dL (32.0-36.0); Mean Corpuscular Hemoglobin 31.7 pg (27.0-31.0); Mean Corpuscular Volume 96.6 fL (78.0-98.0); Mean Platelet Volume 7.3 fL (7.4-10.4); Platelet Count 123 thou/uL (130-400); RBC Distribution Width 13.6 % (11.5-14.5); Red Blood Cell (RBC) Count 4.01 mill/uL (4.70-6.10); White Blood Cell (WBC) Count 7.2 thou/uL (4.8-10.8)
[2019-08-24 11:29] LABS: INR-International Normal Ratio 1.2; PTT 24.6 SEC (22.9-36.1); Prothrombin Time 14.7 SEC (12.0-14.7)
[2019-08-24 11:31] LABS: Anion Gap 10 mmol/L (10-20); BUN (Urea Nitrogen) 28 mg/dL (8.4-25.7); Calc. Creatinine Clearance 52 mL/min (70-130); Calcium 9.7 mg/dL (7.8-10.44); Carbon Dioxide 31 mmol/L (23-31); Chloride 106 mmol/L (98-107); Estimated GFR-MDRD 63; Glucose 97 mg/dL (83-110); Potassium 4.7 mmol/L (3.5-5.1); Sodium 142 mmol/L (136-145)
[2019-08-24] MEDS ORDERED: Morphine 2 MG/ML SYRINGE ONE (11:41)
[2019-08-24] MEDS ORDERED: Thrombin 5000 UNITS/5 ML VIAL ONE (13:22)
[2019-08-24] MEDS ORDERED: Sodium Chloride 0.9% 10 ML ONE (13:22)
[2019-08-24] MEDS ORDERED: Fentanyl 100 MCG/2 ML VIAL ONE (13:25)
[2019-08-24] MEDS ORDERED: Ondansetron PF 4 MG/2 ML Vial IVP PRN (17:26)
[2019-08-24] MEDS ORDERED: Bisacodyl 10 MG SUPP PR PRN (17:26)
[2019-08-24] MEDS ORDERED: tiZANidine HCl 4 MG TAB PO PRN (17:26)
[2019-08-24] MEDS ORDERED: traMADol HCl 50 MG TAB PO PRN (17:26)
[2019-08-24] MEDS ORDERED: HYDROcodone/Acetaminophen 7.5/325 mg Tablet PO PRN (17:26)
[2019-08-24] MEDS ORDERED: Mag-Al 1200 mg/1200 mg/30 ML UDCUP PO PRN (17:26)
[2019-08-24] MEDS ORDERED: Fleet Enema 133 ML BOT PR PRN (17:26)
[2019-08-24] MEDS ORDERED: Milk Of Magnesia 30 ML UDCUP PO PRN (17:26)
[2019-08-24] MEDS ORDERED: Morphine 2 MG/ML SYRINGE SLOW IVP PRN (17:26)
[2019-08-24] MEDS ORDERED: Promethazine HCl 25 MG/ML VIAL SLOW IVP PRN (17:29)
[2019-08-24] MEDS ORDERED: Ondansetron HCl/PF 4 MG/2 ML Vial IVP PRN (17:29)
[2019-08-24] MEDS ORDERED: Promethazine HCl 25 MG/ML VIAL IM PRN (17:29)
[2019-08-24] MEDS ORDERED: Labetalol HCl 100 MG/20 ML VIAL SLOW IVP PRN (17:31)
[2019-08-24] MEDS ORDERED: hydrALAZINE 20 MG/ML VIAL SLOW IVP SCH (17:45)
[2019-08-24 18:47] LABS: #Eosinphils 0.1 thou/uL (0.0-0.7); #Lymphocytes 0.7 thou/uL (1.20-3.40); #Monocytes 0.2 thou/uL (0.11-0.59); #Neutrophils 8.1 thou/uL (1.40-6.50); %Basophils 0.1 % (0.0-1.0); %Eosinophils 0.7 % (0.0-10.0); %Lymphocytes 7.3 % (21.0-51.0); %Monocytes 2.6 % (0.0-10.0); %Neutrophils 89.4 % (42.0-75.0); Hemoglobin 12.3 g/dL (14.0-18.0); Mean Corpuscular HGB CONC 32.7 g/dL (32.0-36.0); Mean Corpuscular Hemoglobin 32.1 pg (27.0-31.0); Mean Corpuscular Volume 97.9 fL (78.0-98.0); Mean Platelet Volume 7.6 fL (7.4-10.4); Platelet Count 121 thou/uL (130-400); RBC Distribution Width 13.6 % (11.5-14.5); Red Blood Cell (RBC) Count 3.83 mill/uL (4.70-6.10); White Blood Cell (WBC) Count 9.1 thou/uL (4.8-10.8)
[2019-08-24 19:05] LABS: Anion Gap 13 mmol/L (10-20); BUN (Urea Nitrogen) 29 mg/dL (8.4-25.7); Calc. Creatinine Clearance 54 mL/min (70-130); Calcium 9.2 mg/dL (7.8-10.44); Carbon Dioxide 24 mmol/L (23-31); Chloride 107 mmol/L (98-107); Estimated GFR-MDRD 65; Glucose 112 mg/dL (83-110); Potassium 4.9 mmol/L (3.5-5.1); Sodium 139 mmol/L (136-145)
[2019-08-24 19:43] VITALS: BMI 23.9
[2019-08-24] MEDS: Sodium Chloride 0.9% 1,000 ML IV SCH (20:08)
[2019-08-24] MEDS: Ramipril 5 MG CAP PO SCH (20:49)
[2019-08-24] MEDS: Atorvastatin Calcium 40 MG TAB PO SCH (20:50)
[2019-08-24] MEDS: Carvedilol 3.125 MG TAB PO SCH (20:50)
[2019-08-24] MEDS: Donepezil HCl 10 MG TAB PO SCH (20:51)
[2019-08-24] MEDS: CEFAZOLIN 2 GM in Premix Bag 1 BAG IVPB SCH (20:54)
[2019-08-24] MEDS: clonazePAM 0.5 MG TAB PO SCH (20:54)
[2019-08-24] MEDS ORDERED: ICOSAPENT ETHYL PO SCH (21:00)
[2019-08-24] MEDS ORDERED: KETOCONAZOLE TOP SCH (21:00)
[2019-08-25] MEDS: CEFAZOLIN 2 GM in Premix Bag 1 BAG IVPB SCH ×3 (04:05→16:06)
[2019-08-25 06:34] LABS: #Lymphocytes 0.6 thou/uL (1.20-3.40); #Monocytes 0.8 thou/uL (0.11-0.59); #Neutrophils 10.4 thou/uL (1.40-6.50); %Basophils 0.2 % (0.0-1.0); %Eosinophils 0.2 % (0.0-10.0); %Lymphocytes 4.8 % (21.0-51.0); %Monocytes 6.4 % (0.0-10.0); %Neutrophils 88.4 % (42.0-75.0); Hemoglobin 11.2 g/dL (14.0-18.0); Mean Corpuscular HGB CONC 32.6 g/dL (32.0-36.0); Mean Corpuscular Volume 98.1 fL (78.0-98.0); Platelet Count 112 thou/uL (130-400); RBC Distribution Width 13.6 % (11.5-14.5); Red Blood Cell (RBC) Count 3.49 mill/uL (4.70-6.10); White Blood Cell (WBC) Count 11.7 thou/uL (4.8-10.8)
[2019-08-25 06:48] LABS: Anion Gap 16 mmol/L (10-20); BUN (Urea Nitrogen) 37 mg/dL (8.4-25.7); Calc. Creatinine Clearance 44 mL/min (70-130); Calcium 8.5 mg/dL (7.8-10.44); Carbon Dioxide 19 mmol/L (23-31); Chloride 106 mmol/L (98-107); Estimated GFR-MDRD 57; Glucose 144 mg/dL (83-110); Potassium 4.5 mmol/L (3.5-5.1); Sodium 136 mmol/L (136-145)
[2019-08-25] MEDS: Sodium Chloride 0.9% 1,000 ML IV SCH (06:55)
[2019-08-25] MEDS: Ferrous Sulfate 325 MG TAB PO SCH (08:46)
[2019-08-25] MEDS: Multivit, Therapeutic 1 TAB PO SCH (08:46)
[2019-08-25] MEDS: Carvedilol 3.125 MG TAB PO SCH ×2 (08:46→21:45)
[2019-08-25] MEDS: Acetaminophen 325 MG TAB PO PRN (09:00)
--- NOTE | 2019-08-25 11:48 | CON ---
DATE OF CONSULTATION: 08/25/2019 REQUESTING PHYSICIAN: Yanick Vance PA-C REASON FOR CONSULTATION: Medical management. HISTORY OF PRESENT ILLNESS: An 84-year-old male with past medical history of recent lumbar laminectomy in 03/2019, who sustained a fall after surgery and underwent a lumbar laminotomy with facetectomy and lumbar fusion on 08/24/2019 by spine surgeon. Postoperatively, consultation is being requested for medical management. At bedside, the patient is accompanied by daughter. He reports episode of emesis and nausea following breakfast this morning. He states that his postoperative pain is currently tolerable and rated as 4/10 in severity. He is awaiting lumbar brace fitting to participate with therapy. He offers no other complaints of angina, near syncope, syncope, dyspnea, or dysuria. His last bowel movement was prior to hospitalization and he is voiding without difficulty. Noted ventricular paced on telemetry monitoring and family reports history of atrial fibrillation with pacemaker placement and prior Watchman procedure and the patient is not on anticoagulation. PAST MEDICAL HISTORY: 1. Coronary artery disease status post CABG. 2. Atrial fibrillation with permanent pacemaker placement and Watchman procedure. 3. Osteoarthritis. 4. Hypertension. 5. Dyslipidemia. 6. BPH. PAST SURGICAL HISTORY: 1. Lumbar laminectomy in 03/2019. 2. CABG x3, 30 years ago. 3. Pacemaker and Watchman for atrial fibrillation. 4. Hip surgery. 5. Knee surgery. 6. Nephrectomy for renal cell carcinoma. 7. Appendectomy. SOCIAL HISTORY: The patient lives at home. Denies any tobacco or alcohol or drug use. He uses a walker at baseline, not using home oxygen. ALLERGIES: NONE REPORTED. REVIEW OF SYSTEMS: Pertinent positives as per HPI, remainder of review of systems negative. MEDICATIONS: Home medications were reviewed as per admission medication reconciliation. Inpatient medications will be reviewed. FAMILY HISTORY: The patient denies any chronic medical comorbidities in the family members. PHYSICAL EXAMINATION: VITAL SIGNS: Temperature 98, blood pressure 108/55, oxygen saturation 97%, respirations 18, and pulse 70 with ventricular paced. GENERAL APPEARANCE: Elderly male, who is hard of hearing, and awake, alert, and oriented, and not in any obvious distress. EYES: Pupils are equally round and reactive. Extraocular muscles are intact. No scleral icterus noted. HENT: Normocephalic and atraumatic. No facial asymmetry. Mucous membranes are moist. CARDIOVASCULAR: S1 and S2. Regular rate and rhythm. No harsh murmurs. No chest wall tenderness. LUNGS: Nonlabored respirations noted on bilateral air entry to auscultation. Diminished inspiratory effort. No audible wheezing. ABDOMEN: Soft, nondistended, and nontender. Bowel sounds noted. EXTREMITIES: No appreciable lower extremity edema. Bilateral lower extremity SCDs noted. BACK: Not visualized. SKIN: Warm to touch without obvious rashes or abrasion. LABORATORY DATA: WBC 11.7, hemoglobin and hematocrit 11.2/34.2, and platelets 112. Sodium 133, potassium 4.5, chloride 106, bicarbonate 19, glucose 144, BUN and creatinine 37/1.20, and GFR 57. Troponin-I negative x1. ASSESSMENT: 1. Nausea and vomiting. Possibly secondary to anesthesia. We will monitor gastrointestinal symptoms. I instructed nursing staff to minimize narcotic use. 2. Elevated creatinine, likely secondary to chronic kidney disease, stage 3, in the patient with solitary nephrectomy for renal cell carcinoma. Recommend discontinuation of IV fluids. 3. Hypertension, benign. 4. Coronary artery disease with prior coronary artery bypass graft x3 history. The patient denies anginal complaints. 5. Chronic atrial fibrillation with permanent pacemaker and Watchman placement history. The patient is not taking any chronic anticoagulation. I recommend discontinuation of telemetry monitoring. 6. Status post lumbar laminotomy, facetectomy, and fusion on 08/24/2019. The patient underwent initial lumbar laminectomy in 03/2019. He subsequently had a fall at home. 7. History of hip surgery. 8. History of knee surgery. 9. History of appendectomy. Deep vein thrombosis prophylaxis as per attending physician. Thank you for the courtesy of this consultation. We will follow this patient along closely with you. Job ID: [id number] [facility]
--- NOTE | 2019-08-25 14:36 | CON ---
DATE OF CONSULTATION: HISTORY OF PRESENT ILLNESS: The patient is an 84-year-old gentleman with a history of coronary artery disease and atrial fibrillation. He was noted to have a rapid irregular heart rhythm during surgery. The patient has a long history of coronary artery disease. He underwent previous coronary artery bypass graft surgery in 1989. He had coronary artery bypass graft surgery x3. The patient also has a history of renal cell carcinoma and has had a nephrectomy. The patient also has a history of bradycardia and has had placement of an electronic pacemaker. The patient also has a history of paroxysmal atrial fibrillation. He has subsequently undergone placement of Watchman device. The patient underwent back surgery. He was noted to be in a rapid irregular heart rhythm. The patient did not have any palpitations or chest discomfort. PAST MEDICAL HISTORY: 1. Coronary artery disease. 2. Paroxysmal atrial fibrillation. 3. Hypertension. 4. Dyslipidemia. 5. Renal insufficiency. 6. History of renal cell carcinoma. PAST SURGICAL HISTORY: Laminectomy, hip surgery, knee surgery, nephrectomy, appendectomy, coronary artery bypass graft surgery. SOCIAL HISTORY: Nonsmoker. ALLERGIES: NONE. MEDICATIONS: See nursing list. REVIEW OF SYSTEMS: Ten-point system otherwise unremarkable. PHYSICAL EXAMINATION: GENERAL: Pale gentleman in no acute distress. VITAL SIGNS: Blood pressure 108/50. NECK: Showed no jugular venous distention. LUNGS: Clear to auscultation. HEART: Regular rate and rhythm. Normal S1 and S2. ABDOMEN: Nondistended. EXTREMITIES: Show no edema. VASCULAR: Radial pulses are 2+. LABORATORY RESULTS: White blood cell count 11.7, hemoglobin 11.2, hematocrit 34.2, and his platelets were 112. Sodium was 136, potassium 4.5, chloride 106, bicarbonate 19, BUN 37, creatinine 1.2. INR 1.2. EKG revealed him to have atrial fibrillation with a nonspecific ST-T wave abnormalities and Q-waves suggestive of previous inferior infarct. IMPRESSION AND PLAN: 1. Paroxysmal atrial fibrillation with history of Watchman device. 2. History of coronary artery bypass graft surgery. 3. History of paroxysmal atrial fibrillation. 4. History of pacemaker placement. 5. History of renal cell carcinoma. 6. Dyslipidemia. 7. Hypertension. This gentleman had a brief episode of paroxysmal atrial fibrillation. He has converted back to sinus rhythm. His pacemaker was interrogated. He has infrequent atrial fibrillation. The patient does have a Watchman device and does not require anticoagulation. From a cardiac standpoint, he appears to be stable. We will continue to monitor this patient with you through his hospitalization. Job ID: [id number] [facility]
[2019-08-25] MEDS: Acetaminophen/Codeine 30-300mg Tablet PO PRN ×2 (17:42→21:50)
[2019-08-25] MEDS: clonazePAM 0.5 MG TAB PO SCH (21:44)
[2019-08-25] MEDS: Ramipril 5 MG CAP PO SCH (21:44)
[2019-08-25] MEDS: Donepezil HCl 10 MG TAB PO SCH (21:44)
[2019-08-25] MEDS: Atorvastatin Calcium 40 MG TAB PO SCH (21:45)
--- NOTE | 2019-08-25 22:19 | PRG ---
DATE OF SERVICE: 08/25/2019 This is Yanick Vance PA-C dictating a report for Tono Fraser MD. Mr. Pardo is postoperative day #1 having undergone right L4-L5 facetectomy and revision of foraminotomy with L4-L5 fusion. The patient overall is doing well today. His daughter is at bedside and confirms this. He is urinating. Immediately postoperatively, he had a small bout of tachycardia with heart rate in the 130s, slowly progressed to heart rate in the 70s last night. Blood pressure has been very stable. Given that his run of tachycardia and given that he has a Watchman in place as well as a pacemaker, some cardiac enzymes were ordered and these appear to be within normal limits. I should note the patient was seen at 8:00 a.m. today. He remains with good strength in the bilateral lower extremities. He has not yet been walking as he has to be fitted for his LSO brace by [facility]. We have asked our Medicine colleagues help us to manage the patient's chronic medical conditions and asked that Cardiology weigh in on the patient's bout of tachycardia and known paroxysmal atrial fibrillation. The patient does not complain of any chest pain at this time. His main complaint is incisional back pain and some right hip pain, though says he has significant improvement in his right leg pain. We will keep him in bed until his brace has been fitted and he needs to wear this anytime he is out of bed. Otherwise, the patient appears to be doing very well postoperatively. We have put an inpatient rehab consult. Though if the patient continues to do this well, he may be a candidate to go home with Home Health. We will check back on him tomorrow. He and his daughter are very appreciative of our care, the nursing staff certainly understands to call Neurosurgery with questions or concerns. Job ID: [id number]
[2019-08-26] MEDS: CEFAZOLIN 2 GM in Premix Bag 1 BAG IVPB SCH ×2 (01:12→08:45)
[2019-08-26] MEDS: Ferrous Sulfate 325 MG TAB PO SCH (08:45)
[2019-08-26] MEDS: Carvedilol 3.125 MG TAB PO SCH ×2 (08:45→21:51)
[2019-08-26] MEDS: Multivit, Therapeutic 1 TAB PO SCH (08:46)
--- NOTE | 2019-08-26 09:46 | OP ---
DATE OF PROCEDURE: 08/24/2019 LOCATION: OR 12. 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 PROCEDURES PERFORMED: 1. L4-L5 complete facetectomy with far-lateral disk removal and placement of interbody spacer following preparation of endplates, packed with local bone autograft obtained from same incision and allograft for interbody arthrodesis. 2. L4-L5 posterior screw cisco fixation with posterolateral fusion, left L4-L5. DESCRIPTION OF PROCEDURE: After informed consent was obtained from the patient, the patient was brought to the OR. Proper patient, pause, and identification were carried out. He was placed under excellent general endotracheal anesthesia and positioned prone on the OR table. All appropriate points were padded. We identified the L4-L5 segment and the spondylolisthesis. Prior wound was also identified. This region was sterilely cleansed, prepared, and draped. Proper patient, pause, and identification were carried out. The wound was then opened with a combination of sharp, monopolar, and blunt dissection. The L4-L5 segments were exposed. The listhesis and spondylolysis were also identified. We then performed a complete facetectomy on the right side with decompression of the L4 nerve root. I then opened the disk space, removed the disk and exenterated this region and placed an interbody spacer of appropriate dimension with some correction of the deformity. We then placed screw cisco fixation at L4-L5 bilaterally with final tightening cisco placement. Posterolateral fusion was also initiated in the posterolateral regions. Local bone autograft obtained from same incision and allograft. Copious irrigation occurred throughout as did maximizing hemostasis. The wound was then closed in anatomic layers following sprinkling of vancomycin powder. The patient emerged from anesthesia. Job ID: [id number]
--- NOTE | 2019-08-26 13:09 | PDOC.HOSPP ---
- Subjective Encounter Date: 08/26/19 Encounter Time: 11:30 Subjective: CONSULTATION PROGRESS NOTE cc: f/u for medical management subjective: patient seen at bedside. asleep but arousable and denies pain. daughter at bedside. reports patient participated with PT yesterday after brace placed and walked from bed to door but was too fatigued for second PT evaluation yesterday. concerned about his functional status and thinks he might require rehab. no further nausea or vomiting reported. - Objective Vital Signs & Weight: Vital Signs (12 hours) Temp Pulse Resp BP Pulse Ox 08/26/19 11:19 98.6 F 65 18 130/65 92 L 08/26/19 07:41 98.9 F 60 16 135/68 96 08/26/19 04:00 97.9 F 64 18 138/63 95 Weight Weight 148 lb 4 oz I&O: 08/25/19 08/26/19 08/27/19 06:59 06:59 06:59 Intake Total 1140 520 Output Total 420 766 Balance 720 -246 Result Diagrams: 08/25/19 06:14 08/25/19 06:14 Hospitalist ROS - Review of Systems Other: pertinent positives per SUBJECTIVE; remainder ROS otherwise negative. - Medication Medications: Active Medications Generic Name Dose Route Start Last Admin Trade Name Freq PRN Reason Stop Dose Admin Acetaminophen 650 mg 08/24/19 17:26 08/25/19 09:00 Tylenol PO 650 mg Q4H PRN Administration Headache/Fever or Pain Acetaminophen/Codeine Phosphate 1 tab 08/24/19 17:26 08/25/19 21:50 Tylenol #3 PO 1 tab Q3H PRN Administration Mild Pain (1-3) Hydrocodone Bitart/Acetaminophen 1 tab 08/24/19 17:26 08/24/19 20:51 Irrigon 7.5/325 PO 1 tab Q4H PRN Administration Moderate Pain (4-6) Atorvastatin Calcium 80 mg 08/24/19 21:00 08/25/19 21:45 Lipitor PO 80 mg HS DEVIN Administration Carvedilol 3.125 mg 08/24/19 21:00 08/26/19 08:45 Coreg PO 3.125 mg BID DEVIN Administration Clonazepam 0.25 mg 08/24/19 21:00 08/25/19 21:44 Klonopin PO 0.25 mg HS DEVIN Administration Donepezil HCl 10 mg 08/24/19 21:00 08/25/19 21:44 Aricept PO 10 mg HS DEVIN Administration Ferrous Sulfate 325 mg 08/25/19 09:00 08/26/19 08:45 Feosol PO 325 mg DAILY DEVIN Administration Mirabegron 50 mg 08/24/19 21:00 08/25/19 21:54 Myrbetriq Er PO 50 mg HS DEVIN Administration Multivitamins 1 tab 08/25/19 09:00 08/26/19 08:46 Theragran PO 1 tab DAILY DEVIN Administration Ondansetron HCl 4 mg 08/24/19 17:26 08/25/19 10:43 Zofran IVP 4 mg Q6H PRN Administration Nausea Pantoprazole Sodium 40 mg 08/25/19 09:00 08/26/19 08:46 Protonix PO 40 mg DAILY DEVIN Administration Ramipril 5 mg 08/24/19 21:00 08/25/19 21:44 Altace PO 5 mg HS DEVIN Administration - Exam General Appearance: awake alert General - other findings: hard of hearing ENT: normocephalic atraumatic, no oropharyngeal lesions, moist mucosa Neck: supple Heart: RRR, no murmur Respiratory: no wheezes, no rales, normal chest expansion Respiratory - other findings: anterior auscultation. Gastrointestinal: soft, non-tender, non-distended, no guarding Skin: normal turgor, no lesions Skin - other findings: non-visualized back Musculoskeletal - other findings: lifts arms and legs; back not visualized. Hosp A/P - Plan nausea and vomiting, resolved. possibly due to anesthesia and pain meds. minimize opioids chronic afib. patient has history of Pacemaker and watchman's. recommend telemetry discontinuation. CAD with prior CABG CKD3, stable. prior nephrectomy for renal cell CA s/p lumbar laminotomy. postoperative care and DVT px per attending. history of march 2019 laminectomy noted. DVT px, per attending will follow along with you in consultation for acute medical issues.
--- NOTE | 2019-08-26 14:47 | PRG ---
DATE OF SERVICE: 08/26/2019 This is Yanick Vance PA-C dictating a report for Tono Fraser MD. Mr. Pardo is postoperative day #2 having undergone revision lumbar hemilaminotomies and L4-5 fusion. The patient is doing well today. Heart rate has remained in the 60s to 50s. Cardiology has seen him and interrogated his pacemaker, and he did have an episode of paroxysmal atrial fibrillation, but otherwise has remained stable. He had a little bit of nausea and vomiting yesterday and a little bit of combativeness, but today, he is much more calm and no further nausea or vomiting. He complains of some incisional back pain, but otherwise has no sharp shooting pains into the legs. He continues with some right hip aching, though he states this is better today. He has been fitted for his LSO brace. He has been ambulating with a walker with PT. He is safe for transfer from telemetry to the surgical floor should this be deemed okay with Cardiology. The patient is awaiting placement [facility] [place], and I believe he will significantly benefit from physical therapy and occupational therapy. He remains with good strength in the bilateral lower extremities with intact sensation to light touch. Please call with any changes in the patient's neurologic status. Otherwise, we will follow up with him tomorrow. Job ID: [id number]
[2019-08-26] MEDS: Acetaminophen/Codeine 30-300mg Tablet PO PRN ×2 (17:45→23:52)
[2019-08-26] MEDS: clonazePAM 0.5 MG TAB PO SCH (21:50)
[2019-08-26] MEDS: Ramipril 5 MG CAP PO SCH (21:51)
[2019-08-26] MEDS: Atorvastatin Calcium 40 MG TAB PO SCH (21:52)
[2019-08-26] MEDS: Donepezil HCl 10 MG TAB PO SCH (21:52)
[2019-08-27] MEDS ORDERED: Aspirin 81 mg Enteric Coated Tablet PO SCH (09:00)
[2019-08-27] MEDS: Multivit, Therapeutic 1 TAB PO SCH (09:18)
[2019-08-27] MEDS: Ferrous Sulfate 325 MG TAB PO SCH (09:18)
[2019-08-27] MEDS: Carvedilol 3.125 MG TAB PO SCH (09:18)
--- NOTE | 2019-08-27 11:40 | PRG ---
DATE OF SERVICE: 08/27/2019 Mr. Pardo is doing well. He has improvement in his right leg pain with good strength. He was mobilizing and he has been stable from a cardiac standpoint. We are arranging for inpatient rehab in [place]. Job ID: [id number]
[2019-08-27] MEDS: Acetaminophen 325 MG TAB PO PRN (12:39)
[2019-08-27 16:23] VITALS: BP 114/64; TEMP 98.2
--- NOTE | 2019-08-29 16:08 | EKG ---
Test Reason : POST OP Blood Pressure : / mmHG Vent. Rate : 099 BPM Atrial Rate : 202 BPM P-R Int : 000 ms QRS Dur : 104 ms QT Int : 320 ms P-R-T Axes : 000 -36 -74 degrees QTc Int : 410 ms Atrial fibrillation Left axis deviation Voltage criteria for left ventricular hypertrophy Inferior infarct , age undetermined Abnormal ECG When compared with ECG of 18-MAR-2019 08:47, Atrial fibrillation has replaced Electronic ventricular pacemaker Vent. rate has increased BY [address] Patti LEI ([id number]) on 08/29/2019 4:07:48 PM Referred By: LYNN Confirmed By:DR. Patti LEI
== END 2019-08-27 16:30 | DRG 454 ==
LOC: SDC 10:20 → 2NO 17:33
PROVIDERS: ADMIT Surgery; ATTEND Surgery
PROC: 0SG00AJ Fusion of Lumbar Vertebral Joint with Interbody Fusion Device, Posterior Approach, Anterior Column, Open Approach (ICD-10-PCS; principal; 2019-08-24)
PROC: 0SG0071 Fusion of Lumbar Vertebral Joint with Autologous Tissue Substitute, Posterior Approach, Posterior Column, Open Approach (ICD-10-PCS; 2019-08-24)
PROC: 0ST20ZZ Resection of Lumbar Vertebral Disc, Open Approach (ICD-10-PCS; 2019-08-24)
DX: M43.16 Spondylolisthesis, lumbar region (principal); I42.9 Cardiomyopathy, unspecified; I25.10 Atherosclerotic heart disease of native coronary artery without angina pectoris; M19.90 Unspecified osteoarthritis, unspecified site; E78.5 Hyperlipidemia, unspecified; N40.0 Benign prostatic hyperplasia without lower urinary tract symptoms; I48.0 Paroxysmal atrial fibrillation; I12.9 Hypertensive chronic kidney disease with stage 1 through stage 4 chronic kidney disease, or unspecified chronic kidney disease; N18.3 Chronic kidney disease, stage 3 (moderate); M47.26 Other spondylosis with radiculopathy, lumbar region; M48.061 Spinal stenosis, lumbar region without neurogenic claudication; F03.90 Unspecified dementia, unspecified severity, without behavioral disturbance, psychotic disturbance, mood disturbance, and anxiety; F17.200 Nicotine dependence, unspecified, uncomplicated; F32.9 Major depressive disorder, single episode, unspecified; Z95.1 Presence of aortocoronary bypass graft; Z95.0 Presence of cardiac pacemaker; Z85.528 Personal history of other malignant neoplasm of kidney; Z90.5 Acquired absence of kidney; Z90.49 Acquired absence of other specified parts of digestive tract
CPT/HCPCS: 36415; 76000; 80048; 83880; 84484; 85025; 85610; 85730; 86850; 86900; 86901; 93005; 93010; C1713; C1768; J0690; J1100; J2001; J2270; J2405; J2704; J3010; J3370; J3490